=== PATIENT | female | born 1955 | race Caucasian/White ===

== ENCOUNTER 2016-10-18 16:59 | Observation (INO) ==
[2016-10-18] MEDS ORDERED: IOPAMIDOL 100 ML BOTTLE IV ONE (17:00)
[2016-10-18] MEDS ORDERED: LACTATED RINGERS 1,000 ML IV ONE (17:32)
[2016-10-18] MEDS ORDERED: ONDANSETRON 4 MG/2 ML VIAL IV ONE (17:32)
--- NOTE | 2016-10-18 17:32 | Emergency Department Note ---
Abdominal Pain HPI - General Chief Complaint: Nausea/Vomiting/Diarrhea Stated Complaint: Abd pain, NVD, dizzy Time Seen by Provider: 10/18/16 17:29 - History of Present Illness HPI Narrative: Patient complains of nausea vomiting diarrhea since Monday. She's also been weak yesterday and today, sister finally brought her in today. Has had some right lower quadrant abdominal pain mainly in the last 24 hours. No chest pain feels a little bit short of breath a little bit dizzy and weak. Thinks she was running a fever over the weekend, not today. - Related Data Home Medications Medication Instructions Recorded Confirmed Alpha E See Dose Instructions PO QDAY 10/22/14 01/09/15 Co Q-10 PO 10/22/14 01/09/15 cranberry PO 10/22/14 01/09/15 evening primrose oil 500 mg capsule 500 mg PO QDAY cap 10/22/14 01/09/15 flaxseed oil 1,000 mg capsule 1,000 mg PO QDAY cap 10/22/14 01/09/15 Previous Rx's Medication Instructions Recorded trazodone 50 mg tablet 50 mg PO QHS #30 tab 01/07/15 buspirone 15 mg tablet 15 mg PO QHS #30 tab 07/29/15 escitalopram 10 mg tablet 10 mg PO QDAY #45 tab 09/24/15 bupropion HCl XL 300 mg 24 hr 300 mg PO QDAY #30 tab 02/15/16 tablet, extended release lamotrigine 100 mg tablet 100 mg PO BID #60 tab 02/15/16 Allergies Allergy/AdvReac Type Severity Reaction Status Date / Time No Known Drug Allergies Allergy Verified 10/18/16 17:07 Review of Systems All systems ED: reviewed and negative except as stated. Abdominal Pain PMH - Past Medical History Attestation: Yes: The following information was validated with the patient. Medical history: Reports: arthritis, GERD - Social History Smoking status: Smoker, status unknown Alcohol use: Reports: Rarely Physical Exam - General Limitations: no limitations General appearance: alert, in no apparent distress - Head Head exam: atraumatic, normocephalic - Eye Eye exam: Present: normal appearance, PERRL, EOMI - ENT ENT exam: normal exam, normal oropharynx, mucous membranes moist - Neck Neck exam: Present: normal inspection, full ROM - Chest Chest inspection: Present: normal inspection, symmetric chest wall rise - Respiratory Respiratory exam: Present: normal lung sounds bilaterally. Absent: respiratory distress - Cardiovascular Cardiovascular exam: Present: regular rate, normal heart sounds - Abdominal Exam Abdominal exam: Present: soft, tenderness, rebound Abdominal tenderness: Present: RLQ - Extremities Exam Extremities exam: Present: normal inspection, full ROM - Back Exam Back exam: Present: normal inspection, full ROM. Absent: CVA tenderness (R), CVA tenderness (L), vertebral tenderness - Neurological Exam Neurological exam: Present: alert, oriented X3, CN II-XII intact - Psychiatric Psychiatric exam: Present: normal affect - Skin Skin exam: Present: warm, dry, intact Course - Reevaluation(s) Reevaluation #1: CT scan of the abdomen was ordered as her white count was elevated and she had right lower quadrant tenderness. It turns out she has an enlarged appendix that appears inflamed on the CT scan. Consult with general surgery, Dr. Davidson was paged. Vital Signs Temperature 98.7 F 10/18/16 17:01 Pulse Rate 96 H 10/18/16 17:01 Respiratory Rate 16 10/18/16 17:01 Blood Pressure 113/66 10/18/16 17:01 Pulse Oximetry (%) 96 10/18/16 17:01 Temperature 98.7 F 10/18/16 17:01 Pulse Rate 75 10/18/16 18:16 Respiratory Rate 24 H 10/18/16 19:04 Blood Pressure 92/51 10/18/16 19:04 Pulse Oximetry (%) 96 10/18/16 18:16 Abdominal Pain - Lab Data Result diagrams: 10/18/16 17:32 10/18/16 17:41 Lab Results 10/18/16 10/18/16 10/18/16 Range/Units 17:32 17:41 18:35 WBC 15.8 H (4.5-11.0) K/mcL RBC 4.50 (4.00-5.20) M/mcL Hgb 14.1 (12.0-15.0) g/dL Hct 41.4 (36.0-48.0) % MCV 92.0 (80.0-100.0) fL MCH 31.4 (26.0-34.0) pg MCHC 34.1 (31.0-36.0) g/dL RDW 13.4 (11.5-14.5) % Plt Count 342 (140-440) K/mcL MPV 6.7 L (7.4-10.4) fL Gran % 81.9 H (38.0-78.0) % Lymph % (Auto) 11.2 L (15.5-49.0) % Gillespie % (Auto) 6.6 (1.0-12.0) % Eos % (Auto) 0.1 (0.0-7.0) % Baso % (Auto) 0.2 (0.0-2.0) % Gran # 12.9 H (1.8-8.0) K/mcL Lymph # (Auto) 1.8 (1.5-4.8) K/mcL Gillespie # (Auto) 1.0 H (0.1-0.9) K/mcL Eos # (Auto) 0 (0.0-0.7) K/mcL Baso # (Auto) 0 (0.0-0.3) K/mcL Sodium 134 (133-145) mmol/L Potassium 3.5 (3.3-5.1) mmol/L Chloride 99 (96-108) mmol/L Carbon Dioxide 22 (22-30) mmol/L Anion Gap 13.0 (8-16) BUN 8 (6-20) mg/dl Creatinine 0.7 (0.6-1.1) mg/dl GFR Calculation 95 Glucose 129 H (70-105) mg/dL Calcium 8.8 (8.6-10.4) mg/dl Total Bilirubin 2.1 H (0.0-1.0) mg/dL AST 12 (0-37) U/l ALT 17 (0-40) U/l Alkaline Phosphatase 71 (39-117) U/L Total Protein 7.0 (5.9-8.4) gm/dL Albumin 4.0 (3.2-5.2) gm/dL Globulin 3.0 (2.2-3.7) gm/dL Albumin/Globulin Ratio 1.3 (1.0-2.3) Urine Color Yellow Urine Appearance Clear Urine pH 5.0 (5.0-9.0) Ur Specific [place] 1.012 (1.000-1.035) Urine Protein Neg (NEG) mg/dL Urine Glucose (UA) Negative (NEG) mg/dL Urine Ketones Neg (NEG) mg/dL Urine Occult Blood Neg (<0.03) mg/dL Urine Nitrate Neg (NEG) Urine Bilirubin Neg (NEG) mg/dL Urine Urobilinogen 2.0 A (NEG) mg/dL Ur Leukocyte Esterase 25 A (NEG) /uL Urine RBC 1 (0-1) /hpf Urine WBC 4 (0-4) /hpf Ur Squamous Epith Cells 3 (0-4) /hpf Urine Bacteria 0 (0) /hpf Hyaline Casts 4 H (0-2) /lpf Urine Mucus Mod (0) /hpf Ur Culture Indicated? No Disposition Condition: Undetermined Referrals: Alba Cantu ARNP [Primary Care Provider] -
[2016-10-18 18:12] LABS: Basophils # (Auto) 0 K/mcL (0.0-0.3); Basophils % (Auto) 0.2 % (0.0-2.0); Eosinophils # (Auto) 0 K/mcL (0.0-0.7); Eosinophils % (Auto) 0.1 % (0.0-7.0); Granulocytes % (Auto) 81.9 % (38.0-78.0); Lymphocytes # (Auto) 1.8 K/mcL (1.5-4.8); Lymphocytes % (Auto) 11.2 % (15.5-49.0); Mean Corpuscular HGB Conc 34.1 g/dL (31.0-36.0); Mean Corpuscular Hemoglobin 31.4 pg (26.0-34.0); Monocytes % (Auto) 6.6 % (1.0-12.0); Platelet Count 342 K/mcL (140-440); Red Cell Distribution Width 13.4 % (11.5-14.5)
[2016-10-18 18:30] LABS: ALT/SGPT 17 U/l (0-40); Albumin/Globulin Ratio 1.3 (1.0-2.3); Alkaline Phosphatase 71 U/L (39-117); Blood Urea Nitrogen 8 mg/dl (6-20)
[2016-10-18 19:05] LABS: Appearance,Urine CLEAR; Bacteria,Urine 0 /hpf (0); Bilirubin,Urine NEG (NEG); Color,Urine YELLOW; Glucose,Urine (UA) NEGATIVE (NEG); Leukocyte Esterase,Urine 25 /uL (NEG); Mucus,Urine MOD /hpf (0); Nitrate,Urine NEG (NEG); Protein,Urine NEG (NEG); Specific Gravity,Urine 1.012 (1.000-1.035); Urine Blood NEG mg/dL (<0.03); Urine Hyaline Cast 4 /lpf (0-2); Urine RBC 1 /hpf (0-1); Urine Squamous Epithelial Cell 3 /hpf (0-4); Urine WBC 4 /hpf (0-4)
[2016-10-18] MEDS ORDERED: PIPERACILLIN SODIUM/TAZOBACTAM 3.375 GM in DEXTROSE 5% IN WATER 50 ML IV SCH (20:15)
[2016-10-18] MEDS: HYDROmorphone 2 MG/ML SYRINGE IV PRN ×2 (20:33→23:33)
[2016-10-18] MEDS: ONDANSETRON 4 MG/2 ML VIAL IV PRN (20:33)
[2016-10-18] MEDS: LACTATED RINGERS 1,000 ML IV SCH (21:00)
[2016-10-19] MEDS: LACTATED RINGERS 1,000 ML IV SCH ×6 (01:30→22:51)
[2016-10-19] MEDS: HYDROmorphone 2 MG/ML SYRINGE IV PRN ×7 (04:36→22:13)
[2016-10-19] MEDS ORDERED: PIPERACILLIN SODIUM/TAZOBACTAM 3.375 GM VIAL IV ONE (04:46)
[2016-10-19] MEDS: PIPERACILLIN SODIUM/TAZOBACTAM 3.375 GM in DEXTROSE 5% IN WATER 50 ML IV SCH ×3 (05:32→21:59)
--- NOTE | 2016-10-19 08:32 | General Surg History&Physical ---
History of Present Illness Patient information: Note initiated : 10/19/16 at 8:29 am Service Date, if different from initiated Date: [] Patient: Erin Bonilla a 61 y/o F admitted on 10/18/16 for Abd pain, NVD, dizzy. Chief Complaint: [] HPI: Ms. Bonilla is a 61 year old F with 1 week history of severe abdominal pain. She has had increased nausea vomiting and diarrhea since Monday evening. The pain became increasingly severe and localized to the right lower quadrant. She has had mild fever and headaches. She will finally came to the emergency room where it was noted that she had tender abdomen with leukocytosis and CT evidence of acute appendicitis. She was admitted last evening and will have appendectomy today. Review of Systems - EENT Nose, mouth and throat: headache(s), neck pain - Cardiovascular no chest pain with activity, no dyspnea on exertion, no palpatations, no rapid heart rate, no syncope - Respiratory no cough, no dyspnea on exertion, no wheezing, no chest congestion - Gastrointestinal abdominal pain, bloating, dyspepsia, nausea, vomiting - Genitourinary Genitourinary: no nocturia, no urinary incontinence - Musculoskeletal arthralgias, back pain, myalgias, stiffness - Integumentary no bleeding lesions, no changing lesions, no new lesions, no pruritus, no rash - Neurological behavioral changes, headache(s), no abnormal hearing, no confusion, no convulsions, no dizziness, no tremor(s), no vertigo, no weakness - Psychiatric anxiety, depression - Endocrine no excessive sweating, no palpitations, no polydipsia, no polyphagia, no polyuria - Hematologic/Lymphatic no easy bleeding, no easy bruising, no lymphadenopathy - Allergic/Immunologic no tongue swelling, no itchy eyes, no uticaria, no wheezing, no lip swelling Past History Past medical history: Bipolar disorder Gastroesophageal reflux disease Alcohol abuse Past surgical history: Abdominal hysterectomy Past family history: Breast cancer Coronary artery disease Hypertension Past social history: Lives with spouse Employed Marijuana user Present day smoker Present daily alcohol use Medications and Allergies Home Medications Medication Instructions Recorded Confirmed Type cranberry 1 tab PO DAILY 10/22/14 10/19/16 History flaxseed oil 1,000 mg capsule 1,000 mg PO QDAY cap 10/22/14 10/19/16 History buspirone 15 mg tablet 15 mg PO QHS #30 tab 04/06/16 06/28/17 Rx bupropion HCl XL 300 mg 24 hr 300 mg PO QDAY #30 tab 02/15/16 10/19/16 Rx tablet, extended release Aspirin [Lo-Dose Aspirin EC] 1 tab PO DAILY 10/19/16 10/19/16 History Escitalopram 20 mg PO DAILY 10/19/16 10/19/16 History Ginkgo Biloba 1 tab PO DAILY 10/19/16 10/19/16 History Sandie Pack 1 packet PO DAILY 10/19/16 10/19/16 History lamoTRIgine [Lamictal] 1 tab PO DAILY 10/19/16 10/19/16 History Allergies Allergy/AdvReac Type Severity Reaction Status Date / Time No Known Drug Allergies Allergy Verified 10/18/16 17:07 Exam Temp Pulse Resp BP Pulse Ox 99.1 F H 84 20 104/67 92 10/19/16 07:31 10/19/16 03:01 10/19/16 07:31 10/19/16 07:31 10/19/16 07:31 - General physical appearance well developed, well nourished, no distress - Eyes PERRL, normal ocular movement - ENT normal pinna, normal nares, normal mucosa, no hearing loss, no congestion - Head Head exam IM: Present: atraumatic, normocephalic - Neck no masses, no bruits, trachea midline, no lymphadectomy, no venous distension - Cardiovascular Cardiovascular exam IM: Present: normal rate and rhythm - Respiratory normal expansion, normal respiratory effort, clear to percussion, clear to auscultation - Abdomen Abdomen: Present: soft, tender, bowel sounds, guarding (Mildly distended with good active bowel sounds tenderness with guarding in right lower quadrant), distended Hernia: Present: none - Integumentary Present: no rash, no growths, no abnormal pigmentation - Neurologic Present: normal coordination, normal sensation - Musculoskeletal Present: normal gait, normal posture - Psychiatric Present: oriented to time, oriented to person, oriented to place, speech is normal, memory intact Assessment and Plan (1) Acute appendicitis Patient is counseled for laparoscopic appendectomy. This will be done later this morning. Status: Acute (2) Bipolar disorder Status: Chronic (3) Alcohol abuse Status: Chronic
--- NOTE | 2016-10-19 09:16 | Cat Scan Report ---
CLINICAL INFORMATION: Right lower quadrant pain COMPARISON: None. TECHNIQUE: Following enteric contrast, 80 cc of Isovue-300 were injected intravenously, and 60 seconds later, 2.5 mm helical slices were obtained from the mid heart through the subtrochanteric regions. Following reconstruction, 2.5 mm sagittal, coronal and axial reformatted images were processed and reviewed at bone, lung and soft tissue windows. Five minutes later, 5 mm helical slices were obtained from the mid heart through the kidneys and viewed at soft tissue windows. FINDINGS: The appendix is mildly enlarged (diameter of 12 mm) and demonstrate moderate wall thickening and inflammatory stranding in the periappendiceal fat. A 16 mm appendicolith is seen in the appendiceal lumen. The inflamed appendix is adjacent to the right ovary. No definite abscess. Lung bases show no abnormality - no effusion. The visualized heart is normal. Images through the abdomen show the gallbladder and bile ducts, liver, both kidneys, adrenal glands, spleen, pancreas and aorta, including aortic branches, to be normal in size, configuration and attenuation without focal lesion. The stomach small large bowel are normal with exception of a few sigmoid diverticuli. Images should the pelvis show hysterectomy changes. Urinary bladder is normal. Bone windows show no osseous abnormality. IMPRESSION: Appendicitis. The appendix is located in the medial/inferior pericecal region. The inflamed appendix is adjacent to the retained right ovary which may be secondarily inflamed. There is a 9 mm appendicolith within the appendiceal lumen Interpreted and Authenticated by: Giovanni Russo 10/19/16
[2016-10-19] MEDS ORDERED: PROPOFOL 200 MG/20 ML VIAL IV ONE (09:35)
[2016-10-19] MEDS ORDERED: ePHEDrine 50 MG/ML AMPUL IV ONE (09:35)
[2016-10-19] MEDS ORDERED: ONDANSETRON 4 MG/2 ML VIAL IV ONE (09:35)
[2016-10-19] MEDS ORDERED: DEXAMETHASONE 10 MG/ML VIAL IV ONE (09:35)
[2016-10-19] MEDS ORDERED: ROCURONIUM 10 MG/ML ML IV ONE (09:35)
[2016-10-19] MEDS ORDERED: LIDOCAINE HCL/PF 100 MG/5 ML SYRINGE IV ONE (09:35)
[2016-10-19] MEDS ORDERED: PHENYLEPHRINE 10 MG/ML VIAL IV ONE (09:35)
[2016-10-19] MEDS ORDERED: NEOSTIGMINE 1 MG/ML VIAL IV ONE (09:35)
[2016-10-19] MEDS ORDERED: GLYCOPYRROLATE 0.2 MG/ML VIAL IV ONE (09:35)
[2016-10-19] MEDS ORDERED: fentaNYL 250 MCG/5 ML VIAL IV ONE (09:35)
[2016-10-19] MEDS ORDERED: MIDAZOLAM 5 MG/5 ML VIAL IV ONE (09:35)
[2016-10-19] MEDS ORDERED: HYDROmorphone 2 MG/ML SYRINGE IV PRN (10:05)
[2016-10-19] MEDS ORDERED: METHOCARBAMOL 1,000 MG/10 ML VIAL IV PRN (10:05)
[2016-10-19] MEDS ORDERED: ONDANSETRON 4 MG/2 ML VIAL IV PRN (10:05)
[2016-10-19] MEDS ORDERED: IPRATROPIUM/ALBUTEROL 3 ML AMPUL.NEB NEB PRN (10:05)
[2016-10-19] MEDS ORDERED: ePHEDrine 50 MG/ML AMPUL IV PRN (10:05)
[2016-10-19] MEDS ORDERED: ATROPINE SULFATE 0.4 MG/ML VIAL IV PRN (10:05)
[2016-10-19] MEDS ORDERED: PROMETHAZINE 25 MG/ML VIAL IV PRN (10:05)
[2016-10-19] MEDS ORDERED: PROMETHAZINE 25 MG/ML VIAL IM PRN (10:05)
[2016-10-19] MEDS ORDERED: METOPROLOL TARTRATE 5 MG/5 ML VIAL IV PRN (10:05)
[2016-10-19] MEDS ORDERED: FLUMAZENIL 0.1 MG/ML ML IV PRN (10:05)
[2016-10-19] MEDS ORDERED: BENZOCAINE/MENTHOL 1 LOZENGE PO PRN (10:05)
[2016-10-19] MEDS ORDERED: diphenhydrAMINE 50 MG/ML VIAL IV PRN (10:05)
[2016-10-19] MEDS ORDERED: NALOXONE HCL 0.4 MG/ML VIAL IV PRN (10:05)
[2016-10-19] MEDS ORDERED: MEPERIDINE 25 MG/ML SYRINGE IV PRN (10:05)
[2016-10-19] MEDS ORDERED: LACTATED RINGERS 1,000 ML IV SCH (10:15)
--- NOTE | 2016-10-19 10:21 | Brief Operative Note ---
Date of procedure: 10/19/16 Pre-op diagnosis: ACUTE APPENDICITIS Post-op diagnosis: other (ACUTE SUPPURATIVE APPENDICITIS) Procedure: LAPAROSCOPIC APPENDECTOMY Grafts/Implants: No Anesthesia: GETA Findings: ACUTE SEVERE INFLAMMATION OF APPENDIX Complications: none Surgeon: Jean Davidson Estimated blood loss (cc): 5 Specimens Removed/Pathology: other (APPENDIX) Condition: stable Disposition: PACU
[2016-10-19] MEDS ORDERED: ACETAMINOPHEN 1,000 MG/100 ML BOTTLE IV PRN (10:27)
[2016-10-19] MEDS: fentaNYL 100 MCG/2 ML VIAL IV PRN ×2 (10:50→10:59)
[2016-10-19] MEDS: 0.9 % SODIUM CHLORIDE 1,000 ML IV SCH ×2 (12:31→22:47)
[2016-10-19] MEDS: 0.9 % SODIUM CHLORIDE 10 ML SYRINGE IV SCH ×2 (13:49→21:40)
[2016-10-19] MEDS: busPIRone 5 MG TABLET PO SCH (21:14)
[2016-10-19] MEDS: oxyCODONE/APAP 5/325MG TABLET PO PRN (22:14)
[2016-10-20] MEDS: busPIRone 5 MG TABLET PO SCH (00:33)
[2016-10-20] MEDS: HYDROmorphone 2 MG/ML SYRINGE IV PRN (02:13)
[2016-10-20] MEDS: oxyCODONE/APAP 5/325MG TABLET PO PRN ×3 (02:24→14:48)
[2016-10-20] MEDS: ONDANSETRON 4 MG/2 ML VIAL IV PRN (02:24)
[2016-10-20] MEDS: 0.9 % SODIUM CHLORIDE 1,000 ML IV SCH (02:54)
[2016-10-20] MEDS: 0.9 % SODIUM CHLORIDE 10 ML SYRINGE IV SCH ×2 (05:16→14:48)
[2016-10-20] MEDS: LACTATED RINGERS 1,000 ML IV SCH (05:16)
[2016-10-20] MEDS: PIPERACILLIN SODIUM/TAZOBACTAM 3.375 GM in DEXTROSE 5% IN WATER 50 ML IV SCH ×2 (05:31→14:45)
[2016-10-20 06:24] LABS: Basophils # (Auto) 0 K/mcL (0.0-0.3); Basophils % (Auto) 0.3 % (0.0-2.0); Eosinophils # (Auto) 0 K/mcL (0.0-0.7); Eosinophils % (Auto) 0.1 % (0.0-7.0); Granulocytes % (Auto) 75.5 % (38.0-78.0); Lymphocytes # (Auto) 1.1 K/mcL (1.5-4.8); Mean Cell Volume 92.5 fL (80.0-100.0); Mean Corpuscular HGB Conc 34.6 g/dL (31.0-36.0); Monocytes # (Auto) 0.8 K/mcL (0.1-0.9); Monocytes % (Auto) 10.1 % (1.0-12.0); Platelet Count 259 K/mcL (140-440); RBC 3.36 M/mcL (4.00-5.20); Red Cell Distribution Width 13.7 % (11.5-14.5)
[2016-10-20 06:45] LABS: ALT/SGPT 14 U/l (0-40); Albumin 3.1 gm/dL (3.2-5.2); Albumin/Globulin Ratio 1.2 (1.0-2.3); Alkaline Phosphatase 59 U/L (39-117); Bilirubin,Direct 0.8 mg/dL (0.0-0.3); Blood Urea Nitrogen 7 mg/dl (6-20); Gamma Glutamyl Transpeptidase 58 U/L (5-36); Uric Acid 2.6 mg/dL (2.5-8.0)
[2016-10-20] MEDS: ACETAMINOPHEN 325 MG TABLET PO PRN ×2 (07:20→12:45)
[2016-10-20] MEDS ORDERED: buPROPion 150 MG TAB.XL.24H PO SCH (09:00)
[2016-10-20] MEDS ORDERED: lamoTRIgine 100 MG TABLET PO SCH (09:00)
[2016-10-20] MEDS ORDERED: ESCITALOPRAM 20 MG TABLET PO SCH (09:00)
--- NOTE | 2016-10-20 13:49 | Surgical Pathology Report ---
HISTOLOGY SPECIMEN MICROSCOPIC DIAGNOSIS APPENDIX, APPENDECTOMY: -- ACUTE SUPPURATIVE APPENDICITIS WITH TRANSMURAL NECROSIS SUGGESTIVE OF PERFORATION. -- FIBRINOPURULENT SEROSITIS AND PERIAPPENDICITIS. (SE:nazanin) PROCEDURAL IMPRESSION Acute appendicitis. GROSS DESCRIPTION Received in formalin labeled with the patient information and further designated as appendix, is a 7.4 cm long by up to 1.0 cm in diameter red-persaud appendix with up to 1.5 cm of attached yellow-persaud adipose tissue. The margin is stapled closed and the staple line continues on into the attached adipose tissue. Approximately 1.8 cm from the margin there is a 1.0 cm long area where the surface appears to disrupted and possibly necrotic. The lumen contains viscous pink-brown fluid and three green-brown fecaliths. There may be a possible perforation at the described thinned area. Icu Nurse sections submitted - one cassette. (STM:[facility]) Electronically Signed by: Marii Benito D.O.
== END 2016-10-20 15:30 | disposition home or self-care (01) ==
LOC: ED 16:59 → MEDSUR 16:59
PROVIDERS: ADMIT Family Medicine Adult Medicine; ATTEND Family Medicine Adult Medicine
PROC: LAPAPPY (ICD-10-PCS; 2016-10-19 09:30)

== ENCOUNTER 2018-05-22 06:52 | Inpatient (IN) ==
[2018-05-16 18:29] LABS: Appearance,Urine HAZY; Bilirubin,Urine NEG (NEG); Color,Urine YELLOW; Glucose,Urine (UA) NEGATIVE (NEG); Leukocyte Esterase,Urine NEG /uL (NEG); Protein,Urine NEG (NEG); Specific Gravity,Urine 1.018 (1.000-1.035); Urine Blood NEG mg/dL (<0.03); Urobilinogen,Urine NEG (NEG)
[2018-05-16 18:33] LABS: Blood Urea Nitrogen 15 mg/dl (8-23)
[2018-05-16 18:41] LABS: Basophils # (Auto) 0.1 K/mcL (0.0-0.3); Basophils % (Auto) 0.8 % (0.0-2.0); Eosinophils # (Auto) 0.1 K/mcL (0.0-0.7); Eosinophils % (Auto) 0.7 % (0.0-7.0); Granulocytes % (Auto) 56.9 % (38.0-78.0); Lymphocytes # (Auto) 2.6 K/mcL (1.5-4.8); Lymphocytes % (Auto) 33.3 % (15.5-49.0); Mean Cell Volume 91.4 fL (80.0-100.0); Mean Corpuscular HGB Conc 33.6 g/dL (31.0-36.0); Monocytes # (Auto) 0.6 K/mcL (0.1-0.9); Monocytes % (Auto) 8.3 % (1.0-12.0); Platelet Count 434 K/mcL (140-440); RBC 4.71 M/mcL (4.00-5.20); Red Cell Distribution Width 12.5 % (11.5-14.5)
[2018-05-22] MEDS ORDERED: CELECOXIB 200 MG CAPSULE PO SCH (07:00)
[2018-05-22] MEDS ORDERED: ceFAZolin 1 GM VIAL IV SCH (07:00)
[2018-05-22] MEDS ORDERED: PREGABALIN 75 MG CAPSULE PO SCH (07:00)
[2018-05-22] MEDS ORDERED: 0.9 % SODIUM CHLORIDE 9 ML, KETOROLAC 30 MG, ROPIVACAINE HCL/PF 49.5 ML, EPINEPHrine 0.... IJ SCH (07:00)
[2018-05-22] MEDS ORDERED: oxyCODONE 10 MG TAB.ER.12H PO SCH (07:00)
[2018-05-22] MEDS ORDERED: GENTAMICIN SULFATE 800 MG/20 ML VIAL IR ONE (07:06)
[2018-05-22] MEDS ORDERED: PHENYLEPHRINE 10 MG/ML VIAL IV ONE (09:15)
[2018-05-22] MEDS ORDERED: PROPOFOL 200 MG/20 ML VIAL IV ONE (09:15)
[2018-05-22] MEDS ORDERED: ONDANSETRON 4 MG/2 ML VIAL IV ONE (09:15)
[2018-05-22] MEDS ORDERED: MIDAZOLAM 2 MG/2 ML VIAL IV ONE (09:15)
[2018-05-22] MEDS ORDERED: TRANEXAMIC ACID 1,000 MG/10 ML VIAL IV ONE ×2 (09:15→10:50)
[2018-05-22] MEDS ORDERED: KETAMINE 100 MG/ML ML IV ONE (09:15)
[2018-05-22] MEDS ORDERED: LIDOCAINE HCL/PF 100 MG/5 ML SYRINGE IV ONE (09:15)
[2018-05-22] MEDS ORDERED: ROPIVACAINE HCL/PF 30 ML VIAL IJ ONE (09:15)
[2018-05-22] MEDS ORDERED: GLYCOPYRROLATE 0.2 MG/ML VIAL IV ONE (09:15)
[2018-05-22] MEDS ORDERED: PRAZOSIN 1 MG CAPSULE PO PRN (10:49)
[2018-05-22] MEDS ORDERED: hydrOXYzine 25 MG TABLET PO PRN (10:49)
--- NOTE | 2018-05-22 10:49 | Brief Operative Note ---
Pre-op diagnosis: right knee oa Post-op diagnosis: same Procedure: right total knee arthroplasty Grafts/Implants: Yes Anesthesia: spinal Complications: none Surgeon: Giovanni Schumacher Ultrasound Sonographer: Luisa Kahn Estimated blood loss (cc): 100 Tourniquet Time (Minutes): 58 Specimens Removed/Pathology: none sent Condition: stable Disposition: PACU
[2018-05-22] MEDS ORDERED: METHOCARBAMOL 750 MG TABLET PO PRN (10:50)
[2018-05-22] MEDS ORDERED: FLEETS ADULT ENEMA PR PRN (10:50)
[2018-05-22] MEDS ORDERED: ONDANSETRON 4 MG ODT TABLET SL PRN (10:50)
[2018-05-22] MEDS ORDERED: BENZOCAINE/MENTHOL 1 LOZENGE PO PRN ×2 (10:50→10:53)
[2018-05-22] MEDS ORDERED: ONDANSETRON 4 MG/2 ML VIAL IV PRN ×2 (10:50→10:53)
[2018-05-22] MEDS ORDERED: BISACODYL 10 MG SUPP.RECT PR PRN (10:50)
[2018-05-22] MEDS ORDERED: MAGNESIUM HYDROXIDE 30 ML ORAL.SUSP PO PRN (10:50)
[2018-05-22] MEDS ORDERED: POLYETHYLENE GLYCOL 3350 17 GM PACKET PO PRN (10:50)
[2018-05-22] MEDS ORDERED: fentaNYL 100 MCG/2 ML VIAL IV PRN (10:53)
[2018-05-22] MEDS ORDERED: METHOCARBAMOL 1,000 MG/10 ML VIAL IV PRN (10:53)
[2018-05-22] MEDS ORDERED: ACETAMINOPHEN 1,000 MG/100 ML BOTTLE IV ONE (10:53)
[2018-05-22] MEDS ORDERED: MEPERIDINE 25 MG/ML SYRINGE IV PRN (10:53)
[2018-05-22] MEDS ORDERED: IPRATROPIUM/ALBUTEROL 3 ML AMPUL.NEB NEB PRN (10:53)
[2018-05-22] MEDS ORDERED: NON FORMULARY MEDICATION 1 DOSE MISCELL (Potassium Gluconate [Potassium] 99 MG) PO SCH (11:00)
[2018-05-22] MEDS ORDERED: LACTATED RINGERS 1,000 ML IV SCH (11:00)
--- NOTE | 2018-05-22 11:26 | Operative Note ---
DATE OF OPERATION: 05/22/2018 PREOPERATIVE DIAGNOSIS: Degenerative joint disease, right knee. POSTOPERATIVE DIAGNOSIS: Degenerative joint disease, right knee. PROCEDURE: Right total knee arthroplasty. SURGEON: Maria Elena Schumacher M.D. RN FIRST ASSISTANT SURGEON: Luisa Kahn PA-C ANESTHESIA: Spinal with LMA assist. ESTIMATED BLOOD LOSS: 100 mL COMPLICATIONS: None noted. SPECIMENS REMOVED: None. DRAINS: None. TOURNIQUET TIME: 58 minutes at 300 mmHg. IMPLANTS: DePuy CMW2 bone cement 20 grams x4, DePuy Attune tibial fixed bearing size 5 cemented, DePuy Attune tibial insert fixed bearing posterior stabilized size 7, 5 mm AOX, DePuy Attune femoral posterior stabilized size 7 right cemented, DePuy Attune patella medialized dome 38 mm cemented AOX. INDICATIONS: The patient has had a long-standing history of worsening pain in the knee that has failed conservative treatment. Radiographs have confirmed advanced degenerative joint disease. After a long discussion about treatment options, the patient elected to proceed with a knee arthroplasty. The risks and benefits were discussed with the patient in detail including, but not limited to, the risks of anesthesia, problems with the heart or lungs related to anesthesia, infection, compromise or injury to the nerves and blood vessels, deep venous thrombosis, pulmonary embolism, pneumonia, continued pain after surgery, worsening pain or symptoms after surgery, swelling, loss of motion, instability, leg length discrepancy, and need for repeat surgery. DESCRIPTION OF PROCEDURE: The patient was seen in the pre-anesthesia waiting room where all questions were answered and the correct side and site were identified and marked. The patient was transferred to the operating room and administered the anesthetic and given pre-operative antibiotics. A time-out was then called. The extremity was prepped and draped, exsanguinated, and the tourniquet was inflated to 300 mmHg. A midline skin incision was then made with a standard medial parapatellar arthrotomy. Debridement of the menisci, ACL, and PCL was performed followed by balancing releases in the medial lateral plane. We then established intramedullary access to both the femur and tibia in a standard fashion. The femoral guide betzaida was initially placed with the distal femoral guide, pinned into place, and the distal femoral cut was performed and checked with a flat plate. We then turned our attention to the tibia. The intramedullary guide was placed with the proximal tibial cutting block. The block was appropriately positioned off the affected side, varus and valgus was checked with the extra-medullary guide, and the block was pinned into place. The proximal tibial cut was performed and the tibia was prepared for the tibial implant with appropriate rotation. The tibia, femur, and posterior compartment were debrided of osteophytes, loose bodies, and meniscal fragments We then used the gap balancing technique to balance extension with the first two cuts and good balancing was obtained with a 10 millimeter gap block. We turned our attention back to the femur and used the referencing block and implant to size appropriately. Using the gap balancing technique for the flexion space we set our rotation of the femur off the tibial cut. Anesthesia gave the patient 1 gram of Tranexamic Acid via an intravenous route. We placed the 4 in 1 cutting block and made anterior, posterior, and chamfer cuts. Box plasty cuts were then made in a standard fashion for the posterior stabilized prosthesis. We then completed osteophyte release and posterior capsule release from the posterior compartment. Trials were placed and we chose the polyethylene insert thickness that provided the best stability in all planes. With the trials in place, we did a measured resection for a resurfacing patella. We sized the patella and placed the patella trial and performed a lateral facetectomy with the saw and rongeur. Good tracking was obtained. We removed all trials, irrigated and dried all cut surfaces. We cemented the components into place including tibia, femur and patella. We placed a trial liner and held the knee in full extension with the patella compressed while the cement cured. We then removed all excess cement and placed the final polyethylene tibiofemoral component. Irrigation with 3 liters of antibiotic saline was then performed using jet-lavage. We let the tourniquet down and coagulated bleeding vessels. We injected a 100 cubic centimeter volume including Ropivacaine 49.25 cubic centimeters at 5 milligrams per cubic centimeter, Ketorolac 30 milligrams, and Epinephrine 0.5 milligrams into 100 cubic centimeters volume of normal saline. We closed the retinaculum with #2 Stratafix and 0 Vicryl. We closed the subcutaneous tissue and skin in layers out to Dermabond on the skin. A sterile pressure dressing was applied. All needle and sponge counts were correct. The patient was transferred to the recovery room in stable condition. CARON:kay Job ID: [id number] Doc ID: [id number] Maria Elena Schumacher MD
--- NOTE | 2018-05-22 11:42 | XRay Report ---
CLINICAL INFORMATION: Post-Op Total Knee COMPARISON: None. FINDINGS: Total knee prosthesis is anatomically aligned. No osseous abnormality. Soft tissue swelling as expected IMPRESSION: Negative Interpreted and Authenticated by: Giovanni Russo 05/22/18
[2018-05-22] MEDS: 0.9 % SODIUM CHLORIDE 1,000 ML IV SCH ×2 (12:30→20:24)
[2018-05-22] MEDS: KETOROLAC 30 MG/ML VIAL IV SCH ×3 (12:40→23:34)
[2018-05-22] MEDS: 0.9 % SODIUM CHLORIDE 10 ML SYRINGE IV SCH ×2 (16:15→21:50)
[2018-05-22] MEDS: HYDROcodone/APAP 10/325MG TABLET PO PRN ×2 (17:55→21:48)
[2018-05-22] MEDS: ceFAZolin 1 GM VIAL IV SCH (18:04)
[2018-05-22] MEDS ORDERED: busPIRone 15 MG TABLET PO SCH (21:00)
[2018-05-22] MEDS: SENNOSIDES 1 TABLET PO SCH (21:43)
[2018-05-22] MEDS: DOCUSATE SODIUM 100 MG CAPSULE PO SCH (21:44)
[2018-05-22] MEDS: ASPIRIN 325 MG ENTERIC COATED TABLET PO SCH (21:44)
[2018-05-22] MEDS: lamoTRIgine 100 MG TABLET PO SCH (21:46)
[2018-05-22] MEDS: ARIPIPRAZOLE 20 MG TABLET PO SCH (21:47)
[2018-05-23] MEDS: ceFAZolin 1 GM VIAL IV SCH (01:14)
[2018-05-23] MEDS: 0.9 % SODIUM CHLORIDE 1,000 ML IV SCH ×2 (03:14→11:33)
[2018-05-23] MEDS: HYDROcodone/APAP 10/325MG TABLET PO PRN (05:03)
[2018-05-23] MEDS: KETOROLAC 30 MG/ML VIAL IV SCH ×4 (05:43→23:52)
[2018-05-23] MEDS: 0.9 % SODIUM CHLORIDE 10 ML SYRINGE IV SCH ×3 (06:08→23:52)
--- NOTE | 2018-05-23 07:42 | Orthopedic Progress Note ---
Subjective Patient information: Note initiated : 05/23/18 at 7:41 am Service Date, if different from initiated Date: [] Patient: Erin Bonilla 63 y/o F admitted on 05/22/18 for Right Total Knee Arthroplasty. Chief Complaint: [] Interval history: doing well. painful this am Objective Vital signs: Vital Signs Temp Pulse Resp BP BP Pulse Ox 05/23/18 02:49 97.8 F 70 12 104/50 96 05/22/18 23:37 98.1 F 71 12 102/54 94 05/22/18 19:53 98.1 F 65 12 115/65 95 05/22/18 13:59 67 111/65 95 05/22/18 13:29 66 124/69 98 05/22/18 12:59 70 117/67 96 05/22/18 12:44 65 127/75 96 05/22/18 12:29 74 123/70 100 05/22/18 12:14 71 125/68 99 05/22/18 11:59 74 127/72 99 05/22/18 11:53 97.7 F 72 18 124/67 97 05/22/18 11:40 97.7 F 72 14 110/57 99 05/22/18 11:24 97.2 F 76 18 125/63 100 05/22/18 11:20 74 13 124/66 100 05/22/18 11:15 71 12 120/52 100 05/22/18 11:10 97.7 F 70 12 132/64 100 05/22/18 07:55 96.0 F L 69 16 123/64 94 Intake and Output 05/22/18 05/23/18 05/23/18 21:59 05:59 13:59 Intake Total 1438 1350 Output Total 1850 Balance -412 1350 Intake: IV 988 825 Sodium Chloride 0.9% 1,000 ml @ 988 825 125 mls/hr IV .Q8H [facility] Rx#: [id number] Oral 450 525 Output: Void Amount 1850 Other: Urine Appearance Clear Urine Color Straw Urine Odor Normal # Voids 1 Weight 192 lb 8 oz Intake & Output: Intake & Output 05/22/18 05/23/18 05/23/18 21:59 05:59 13:59 Intake Total 1438 1350 Output Total 1850 Balance -412 1350 Weight 192 lb 8 oz Intake: IV 988 825 Sodium Chloride 0.9% 1,000 ml @ 988 825 125 mls/hr IV .Q8H [facility] Rx#: [id number] Oral 450 525 Output: Void Amount 1850 Other: Urine Appearance Clear Urine Color Straw Urine Odor Normal # Voids 1 Incision: Yes healing Incision clean and dry: Yes Dressing: Yes clean, Yes dry, Yes intact Weight bearing status: full Neurological exam IM: Yes abnormal gait, Yes alert, Yes oriented X3, Yes reflexes normal, Yes motor sensory intact, Yes neurovascular intact Extremities exam IM: No calf tenderness, Yes Foot pink and warm, Yes neurovascular intact - Labs CBC & BMP: 05/23/18 04:54 05/16/18 16:45 Labs: 05/23/18 05/16/18 04:54 16:45 Hgb 10.9 L 14.4 Hct 32.3 L 43.0 Assessment and Plan (1) Knee osteoarthritis pod 1 s/p tka wbat pain control dvt prophylaxis d/c planning Status: Acute
--- NOTE | 2018-05-23 07:43 | Discharge Summary ---
Ortho Discharge - TKA - Patient Instructions Diet: Regular Diet Activity: ambulate with assistive device, weight bearing as tolerated Total Knee Protocol: For Total Knee: Start ROM STEPHANIE with stationary bike or rocking chair. Work on gaining full extension of knee. Posterior dislocation precautions provided. Hip abductor strengthening and gait training instructions provided. Apply Cryocuff as instructed. Dressing Care: May shower in 2 days - Problem Maintenance (1) Knee osteoarthritis Status: Acute - Follow Up Plan Follow Up Appointments: Luisa Kahn PA-C [Physician Risk Control Field Representative] - 06/06/18 9:40 am Disposition: Home, Self-Care Prognosis: Good Rehab Potential: Good I certify that the patient requires SNF services: No Overall status at discharge: patient is progressing back to baseline
[2018-05-23] MEDS: ASPIRIN 325 MG ENTERIC COATED TABLET PO SCH ×2 (08:59→23:49)
[2018-05-23] MEDS: ESCITALOPRAM 20 MG TABLET PO SCH (08:59)
[2018-05-23] MEDS: DOCUSATE SODIUM 100 MG CAPSULE PO SCH ×2 (08:59→23:51)
[2018-05-23] MEDS: busPIRone 5 MG TABLET PO SCH ×2 (08:59→23:50)
[2018-05-23] MEDS: lamoTRIgine 100 MG TABLET PO SCH ×2 (08:59→23:50)
[2018-05-23] MEDS: oxyCODONE/APAP 5/325MG TABLET PO PRN ×3 (09:00→18:07)
[2018-05-23] MEDS: buPROPion 150 MG TAB.XL.24H PO SCH (09:01)
[2018-05-23] MEDS ORDERED: TEMAZEPAM 15 MG CAPSULE PO PRN (20:13)
[2018-05-23] MEDS: ARIPIPRAZOLE 20 MG TABLET PO SCH (23:48)
[2018-05-23] MEDS: SENNOSIDES 1 TABLET PO SCH (23:49)
[2018-05-24] MEDS: oxyCODONE/APAP 5/325MG TABLET PO PRN ×3 (00:03→14:21)
[2018-05-24] MEDS: HYDROcodone/APAP 10/325MG TABLET PO PRN (05:51)
[2018-05-24] MEDS: KETOROLAC 30 MG/ML VIAL IV SCH (05:51)
[2018-05-24] MEDS: 0.9 % SODIUM CHLORIDE 10 ML SYRINGE IV SCH ×2 (05:57→15:21)
--- NOTE | 2018-05-24 06:33 | Discharge Summary ---
Providers - Providers Patient information: Note initiated : 05/24/18 at 6:31 am Service Date, if different from initiated Date: [] Patient: Erin Bonilla 63 y/o F admitted on 05/22/18 for Right Total Knee Arthroplasty. Chief Complaint: [POD #2 s/p right TKA Doing much better today. Pain much improved. Denies CP, SOB, numbness, tingling, calf pain] Discharge date: 05/24/18 Attending physician: Giovanni Schumacher Hospitalization Hospital course: Patient brought to OR on 05/22/18 for right TKA which went on without complication. She was admitted for post op pain control and care. Her pain was not well managed POD #1 on Hydrocodone. She was changed to Percocet and her pain improved. She will discharge to home today and follow up in the office in 10-14 days. Discharge diagnosis: knee osteoarthritis Exam - Exam Incision healing: Yes Incision draining: No Incision red: No Incision swollen: No Incision inflamed: No Clean and dry: Yes Weight bearing status: as tolerated Range of motion: full foot and ankle Ortho Discharge - TKA - Patient Instructions Diet: Regular Diet Activity: ambulate with assistive device, weight bearing as tolerated Total Knee Protocol: For Total Knee: Start ROM STEPHANIE with stationary bike or rocking chair. Work on gaining full extension of knee. Posterior dislocation precautions provided. Hip abductor strengthening and gait training instructions provided. Apply Cryocuff as instructed. Patient Education: Oxycodone/Acetaminophen (By mouth), Aspirin (By mouth), Total Knee Replacement (DC) Additional Instructions: Discharge Instructions: Do the exercises at home that physical therapy gave you throughout the day. Weight bearing as tolerated. Wear comfortable clothing for physical therapy. You are scheduled to start physical therapy at [facility] ([phone])on May.28 at 12:00 pm, please arrive 15 minutes early for paperwork. Take your prescription, photo ID, insurance cards, and current medication list with you to your first physical therapy appointment. Take your prescription to machine pecan picker any medication or equipment (such as walker, crutches, toilet riser or C.P.M.) You have Dermabond (a dressing with a mesh-like appearance), DO NOT remove mesh. Cover site daily with gauze dressing. You may start showering on post op day #2. The Dermabond dressing can get wet, do not scrub dressing. Pat dry, then place new dressing (above). To avoid constipation while taking any narcotic pain medication, take an over the counter stool softener/laxative. Use your Cryocuff or ice packs as directed, on for 20 minutes at a time thr oughout the day. This and elevation will help with pain and swelling. Call your physician for fevers above 100.5 or pain not controlled by medication. Your prescriptions are with your discharge information. Some medications were electronically transmitted to your pharmacy of choice. Take Aspirin twice daily, for 30 days, as prescribed to prevent blood clots (see medication list). - Follow Up Plan Follow Up Appointments: Luisa Kahn PA-C [Physician Technical Writing Lead/Mgr] - 06/06/18 9:40 am Disposition: Home, Self-Care Prognosis: Good Rehab Potential: Good I certify that the patient requires SNF services: No - Orders For Discharge Prescriptions: Aspirin [Ecotrin] 325 mg PO BID #60 tab.ec oxyCODONE/APAP [Percocet 5-325 mg] 1 - 2 tab PO Q4H PRN #60 tab PRN Reason: Pain Additional Discharge Orders: Physical Therapy at Discharge - TKA Location: None Selected Toilet Riser Discharge Order Location: None Selected Walker Location: None Selected Pending Studies Resuscitation Status Full Code Diet Regular Diet Start MonMay 22 1051 Hydrocodone Bitart/Acetaminophen ([place] 10/325mg) 0 tab PO Q4HP PRN PRN Reason: PAIN LEVEL 3-6 Last Admin: 05/24/18 05:51 Dose: 2 tab Documented by: [email or web address] Admin: 05/23/18 05:03 Dose: 2 tab Documented by: [email or web address] Admin: 05/22/18 21:48 Dose: 2 tab Documented by: [email or web address] Admin: 05/22/18 17:55 Dose: 2 tab Documented by: [email or web address] Aspirin (Ecotrin) 325 mg PO BID [facility] Last Admin: 05/23/18 23:49 Dose: 325 mg Documented by: [email or web address] Admin: 05/23/18 08:59 Dose: 325 mg Documented by: [email or web address] Admin: 05/22/18 21:44 Dose: 325 mg Documented by: ALISIA Bupropion HCl (Wellbutrin Xl) 300 mg PO DAILY [facility] Last Admin: 05/23/18 09:01 Dose: 300 mg Documented by: DARIUS Buspirone HCl (Buspar) 15 mg PO BID [facility] Last Admin: 05/23/18 23:50 Dose: 15 mg Documented by: Admin: 05/23/18 08:59 Dose: 15 mg Documented by: DARIUS Docusate Sodium (Colace) 100 mg PO BID [facility] Last Admin: 05/23/18 23:51 Dose: 100 mg Documented by: Admin: 05/23/18 08:59 Dose: 100 mg Documented by: Admin: 05/22/18 21:44 Dose: 100 mg Documented by: ALISIA Escitalopram Oxalate (Lexapro) 10 mg PO DAILY [facility] Last Admin: 05/23/18 08:59 Dose: 10 mg Documented by: DARIUS Lamotrigine (Lamictal) 100 mg PO BID [facility] Last Admin: 05/23/18 23:50 Dose: 100 mg Documented by: Admin: 05/23/18 08:59 Dose: 100 mg Documented by: Admin: 05/22/18 21:46 Dose: 100 mg Documented by: ALISIA Methocarbamol (Robaxin) 750 mg PO Q6HP PRN PRN Reason: Muscle Spasm Last Admin: 05/23/18 09:53 Dose: 750 mg Documented by: DARIUS Morphine Sulfate (Morphine) 0 mg IV Q1HP PRN PRN Reason: PAIN LEVEL > 6 Last Admin: 05/23/18 15:43 Dose: 2 mg Documented by: Admin: 05/22/18 23:35 Dose: 4 mg Documented by: ALISIA Oxycodone/Acetaminophen (Percocet 5-325 Mg) 1 - 2 tab PO Q4-6HP PRN PRN Reason: Pain Last Admin: 05/24/18 00:03 Dose: 2 tab Documented by: Admin: 05/23/18 18:07 Dose: 2 tab Documented by: Admin: 05/23/18 13:47 Dose: 2 tab Documented by: Admin: 05/23/18 09:00 Dose: 2 tab Documented by: DARIUS Senna (Senokot) 2 tab PO HS [facility] Last Admin: 05/23/18 23:49 Dose: 2 tab Documented by: Admin: 05/22/18 21:43 Dose: 2 tab Documented by: ALISIA Sodium Chloride (Saline Flush) 10 ml IV Q8 [facility] Last Admin: 05/24/18 05:57 Dose: 10 ml Documented by: Admin: 05/23/18 23:52 Dose: 10 ml Documented by: Admin: 05/23/18 15:44 Dose: 10 ml Documented by: [email or web address] Admin: 05/23/18 06:08 Dose: 10 ml Documented by: Admin: 05/22/18 21:50 Dose: Not Given Documented by: Admin: 05/22/18 16:15 Dose: Not Given Documented by: JUDIE Shift Summary 05/24/18 03:50 Shift Summary by Wendie Cain Pt went to sleep about 1999, and has been asleep all night. She will wake up easily. PO pain meds given at midnight to keep up on pain control as it got out of hand yesterday. Had been up ad carmelina in her room to BR w/FWW. Cryo cuff has been used. She is hoping to go home today. Initialized on 05/24/18 03:50 - END OF NOTE
[2018-05-24] MEDS: ESCITALOPRAM 20 MG TABLET PO SCH (08:42)
[2018-05-24] MEDS: ASPIRIN 325 MG ENTERIC COATED TABLET PO SCH (08:42)
[2018-05-24] MEDS: DOCUSATE SODIUM 100 MG CAPSULE PO SCH (08:42)
[2018-05-24] MEDS: lamoTRIgine 100 MG TABLET PO SCH (08:43)
[2018-05-24] MEDS: busPIRone 5 MG TABLET PO SCH (08:44)
[2018-05-24] MEDS: buPROPion 150 MG TAB.XL.24H PO SCH (08:44)
[2018-05-24] MEDS ORDERED: PNEUMOCOCCAL 23-VAL P-SAC VAC 0.5 ML SYRINGE IM ONE (10:00)
[2018-05-24] MEDS: 0.9 % SODIUM CHLORIDE 1,000 ML IV SCH (16:38)
== END 2018-05-24 16:40 | disposition home or self-care (01) | DRG 470 ==
LOC: MEDSUR 06:52
PROVIDERS: ADMIT Orthopaedic Surgery Sports Medicine; ATTEND Orthopaedic Surgery Sports Medicine